=== PATIENT | male | born 1985 | race African-American/Black ===

== ENCOUNTER 2016-08-27 17:24 | Emergency (ER) | payer OTHER ==
[~2016-08-27] VITALS: Ht 185.4 cm; Wt 116.1 kg
[2016-08-27 18:56] LABS: HEMATOCRIT 38.7 % (38.0-50.0); MCH 30.1 PG (29.0-34.0); MCHC 35.7 G/DL (30.0-36.0); MCV 84.3 FL (86-99); MEAN PLAT.VOLUME 9.9 uM^3 (9.0-12.4); PLATELET COUNT 238 K/uL (156-360); RBC DIS.WIDTH-CV 11.5 % (11.8-14.6); RBC DIS.WIDTH-SD 34.8 % (39-53); RED BLOOD COUNT 4.59 M/uL (4.00-5.50); WHITE BLOOD COUNT 5.7 K/uL (4.1-10.2)
[2016-08-27 19:06] LABS: CHLORIDE 104 mEq/L (99-109); POTASSIUM 3.5 mEq/L (3.7-5.4); SODIUM 140 mEq/L (136-147)
[2016-08-27 19:08] LABS: GLUCOSE 98 mg/dL (70-99)
[2016-08-27 19:09] LABS: ANION GAP 10 MEQ/L (2-14)
[2016-08-27 19:12] LABS: GFR ESTIMATE (CALCULATED) > 59 mL/min/; UREA NITROGEN (BUN) 11 mg/dL (9-23)
[2016-08-27 19:18] LABS: TROP-I INTERPRETATION NEGATIVE; TROPONIN-I 0.02 ng/mL (0.0-0.30)
[2016-08-27 20:30] LABS: TROP-I INTERPRETATION NEGATIVE; TROPONIN-I 0.02 ng/mL (0.0-0.30)
[2016-08-27] MEDS ORDERED: LOSARTAN-HCTZ1 EAC1 PO (22:14)
[2016-08-27] MEDS ORDERED: IBUPROFEN600 MG PO (22:14)
[2016-08-27] MEDS ORDERED: NORVASC10 MG PO (22:15)
[2016-08-27 23:25] VITALS: BP 184/111
== END 2016-08-27 23:34 | disposition short-term general hospital (02) ==
LOC: EME 17:24
PROVIDERS: Emergency Medicine
DX: R07.9 Chest pain, unspecified (principal); R94.31 Abnormal electrocardiogram [ECG] [EKG]; I10 Essential (primary) hypertension; Z87.891 Personal history of nicotine dependence
CPT/HCPCS: 71020; 80048; 84484; 85027; 93005; 99281; 99285